=== PATIENT | male | born 1995 | race Caucasian/White ===

== ENCOUNTER 2019-04-11 14:00 | Outpatient (CLI) | payer OTHER ==
[~2019-04-11 14:00] MED LIST: GILTUSS LIQUID237 M1 PO
== END 2019-04-11 14:35 | disposition home or self-care (01) ==
LOC: MRI 14:00
DX: M25.511 Pain in right shoulder (principal)
CPT/HCPCS: 73221

== ENCOUNTER 2019-05-08 08:35 | Outpatient (CLI) | payer OTHER | END 2019-05-08 08:56 | disposition home or self-care (01) | LOC: TOM 08:35 | DX: M24.411 Recurrent dislocation, right shoulder (principal) ==

== ENCOUNTER 2019-05-11 13:26 | Outpatient (CLI) | payer OTHER | END 2019-05-11 13:48 | disposition home or self-care (01) | LOC: TOM 13:26 | DX: M24.411 Recurrent dislocation, right shoulder (principal) ==